=== PATIENT | male | born 1955 | race Caucasian/White ===

== ENCOUNTER → 2017-02-19 | Outpatient (CLI) | payer OTHER ==
[~2017-02-19] VITALS: Ht 182.9 cm; Wt 98.0 kg
[~2017-02-19] MED LIST: AGG PO; BENZOCAIN/TETRACA/BUTAM SPRAY 200 APPLN/20 GM SPRY ONE; CANNULA ONE; CHOL1000 PO; FENTANYL CITRATE INJ 50 MCG/1 ML 2 ML VIAL ONE; FLUT0.15; GARL1000; LEVO100T7 PO; LISI10TA PO; MIDAZOLAM HCL 1 MG/ML 2ML VIAL ONE; OMEG10007 PO; SIMV40TA2 PO; TRAM-10 PO; TUMERIC PO
[2017-02-19 07:40] VITALS: Ht 182.9 cm; Wt 98.0 kg
[2017-02-19 07:41] VITALS: BP 141/66; PULSE 54; TEMP 36.8; O2SAT 97
[2017-02-19 07:58] VITALS: BP_SYST 160; BP_SYST 3; BP_DIAS 80; PULSE 62; O2SAT 97
[2017-02-19 08:02] VITALS: BP 147/71; PULSE 60; O2SAT 97
[2017-02-19 08:05] VITALS: BP 141/62; PULSE 60; O2SAT 96
[2017-02-19 08:10] VITALS: BP 150/64; PULSE 65; O2SAT 97
--- NOTE | 2017-02-19 08:25 | Discharge Instructions ---
Discharge Instructions Date of Service Feb 19, 2017. Admission Reason for Admission: TIA Discharge Discharge Diagnosis / Problem: JOSE LUIS Discharge Goals Goal(s): Diagnostic testing Activity Recommendations Activity Limitations: resume your previous activity . Current Hospital Diet Patient's current hospital diet: Regular Diet Discharge Diet Recommended Diet: Regular Diet Pending Studies Studies pending at discharge: no Medical Emergencies . Who to Call and When: Medical Emergencies: If at any time you feel your situation is an emergency, please call 911 immediately. . Non-Emergent Contact Non-Emergency issues call your: Primary Care Provider . . "Provider Documentation" section prepared by Hari Green. . VTE Core Measure Inpt VTE Proph given/why not?: Treatment not indicated
[2017-02-19 08:55] VITALS: BP 127/58; PULSE 55; O2SAT 94
--- NOTE | 2017-02-19 10:21 | TEE ---
*NOTICE TO RECEIVING [employer] This information is strictly Confidential and protected under [place] law. [place] law prohibits you from making any further disclosure of this information unless further disclosure is expressly permitted by the written consent of the person to whom it pertains or is authorized by law. A general authorization for the release of medical or other information is not sufficient for this purpose. Hospital accepts no responsibility if the information is made available to any other person, INCLUDING THE PATIENT. Interpretation Summary * Name: VAL QUINONES Study Date: 02/19/2017 07:23 AM BP: 160/80 mmHg * HR: 67 * : 1955 (M/d/yyyy) Gender: Male Height: 72 in * Age: 61 yrs Ethnicity: [place] Weight: 216 lb * Ordering Physician: Hari Green DO * Performed By: Bryant Pop RCS * * Reason For Study: Eval for JOSE LUIS * BSA: 2.2 m2 * -- Conclusions -- * A patent foramen ovale is present and there is low risk for embolism. * Very small number of microbubbles crossed septum during microcav study. Procedure Details * BLAKE Probe #1 utilized for procedure. * The study was performed in Cardiopulmonary Department. * Time out was conducted by the physician, nurse, and technical data analyst with positive identification of patient and procedure. * Informed consent for Transesophageal Echocardiogram was obtained prior to the procedure. * An intravenous line was placed. A topical anesthetic agent was used for oropharangeal anesthesia. A bite block was inserted. * The patient's vital signs, including blood pressure, heart rate, pulse oximetry and cardiac rhythm were monitored throughout the procedure . * Fentanyl 50 mcg was administered for procedural sedation. * Midazolam 4 mg administered for sedation. * A multifrequency, multiplane transesopheageal echocardiographic endoscope was inserted and manipulated in the standard fashion to achieve multiplane views. * The transesophageal probe was passed without difficulty. * Procedure Start Time 0758. Procedure Stop Time 0813. * Contrast injection with agitated saline was performed. * The patient tolerated the procedure well without evidence of orophangeal or esophageal trauma. * Limited views were obtained. * A 2D transesophageal echocardiogram was performed. * A 2D transesophageal echocardiogram with color flow Doppler was performed. Left Ventricle * The left ventricle is normal in size. * Left ventricular systolic function is normal. * The left ventricular wall motion is normal. Right Ventricle * The right ventricle is normal size. * The right ventricular systolic function is normal. Atria * The left atrial size is normal. * No left atrial mass or thrombus visualized. * No thrombus is detected in the left atrial appendage. * Right atrial size is normal. * A patent foramen ovale is present and there is low risk for embolism. * Very small number of microbubbles crossed septum during microcav study. Mitral Valve * The mitral valve is normal in structure and function. Tricuspid Valve * The tricuspid valve is normal in structure and function. Aortic Valve * The aortic valve is normal in structure and function. Pulmonic Valve * The pulmonic valve is not well seen, but is grossly normal. Great Vessels * The aortic root and proximal ascending aorta are normal sized. Pericardium * There is no pericardial effusion. Right Ventricle * The right ventricular wall motion is normal.
== END | disposition home or self-care (01) ==
LOC: C.CPL 06:45
PROVIDERS: ATTEND Internal Medicine Interventional Cardiology
DX: G45.9 Transient cerebral ischemic attack, unspecified (principal)